=== PATIENT | female | born 1985 | race Caucasian/White ===

== ENCOUNTER 2018-02-25 13:32 | Emergency (ER) | payer BC, OTHER, SELFPAY ==
[2018-02-25] MEDS ORDERED: NA CHLORIDE 0.9% 1,000 ML ONE (14:30)
[2018-02-25 14:45] LABS: Absolute Lymphocytes (CBC) 1.7 K/uL (0.7-4.9); Absolute Monocytes 0.6 K/uL (0.1-1.3); Absolute Neutrophil 3.5 K/uL (1.8-8.0); Eosinophils % 2.8 % (0-4.4); Hematocrit 38.7 % (36.0-45.0); Lymphocytes % 28.1 % (15.3-44.8); MCH 30.6 pg (27.0-35.0); MCV 89.8 fL (80-100); MPV 9.2 fL (7.6-11.3); Monocytes % 9.5 % (3.3-12.3); RBC Red Blood Cell Count 4.32 M/uL (3.86-4.86)
[2018-02-25 15:01] LABS: ALT/SGPT 19 U/L (12-78); AST/SGOT 17 U/L (15-37); Albumin 4.3 g/dL (3.4-5.0); Alkaline Phosphatase 57 U/L (45-117); BUN Blood Urea Nitrogen 8 mg/dL (7-18); Bicarbonate 28 mmol/L (21-32); Bilirubin Total 0.5 mg/dL (0.2-1.0); Glucose Level 93 mg/dL (74-106); Potassium 3.7 mmol/L (3.5-5.1); Protein, Total 8.1 g/dL (6.4-8.2); Sodium Level 140 mmol/L (136-145)
[2018-02-25 16:05] LABS: Urine Blood 3+ (NEG); Urine Glucose NEGATIVE (NEG); Urine Protein NEGATIVE (NEG); Urine Specific Gravity 1.015 (1.005-1.030)
[2018-02-25] MEDS ORDERED: HYDROCODONE/APAP 7.5/325 MG TAB ONE (16:08)
[2018-02-25 16:25] LABS: Urine Specific Gravity 1.015 (1.005-1.030)
--- NOTE | 2018-02-25 16:55 | RAD REPORT ---
EXAM DESCRIPTION: US - Transvaginal Study Probe - 02/25/2018 4:34 pm CLINICAL HISTORY: Recent , elevated temperature COMPARISON: None. TECHNIQUE: Endovaginal sonography was performed. FINDINGS: Endometrial stripe is 19 mm in maximum thickness. Material in the endometrial cavity is he terogeneous. Doppler evaluation shows no identifiable blood flow or feeding vessel. Normal blood flow within the myometrium. Uterus is 7.3 x 4.7 x 5.6 cm. No blood or fluid in the cul-de-sac. Right ovary is 4.9 x 1.4 x 1.6 cm. Left ovary is 3.7 x 1.7 x 1.7 cm. Doppler evaluation shows normal blood flow within the ovarian stroma. No ovarian or adnexal abnormality. IMPRESSION: Heterogeneous 19 millimeter endometrial stripe. Retained products of conception cannot b e excluded at this thickness even when avascular on Doppler assessment.
--- NOTE | 2018-02-25 17:30 | EDPHYS ---
Physician Documentation [facility] Name: Bere Centeno Age: 32 yrs Sex: Female : 1985 Arrival Date: 02/25/2018 Time: 13:36 Bed 25 Private MD: None, None ED Physician Darren Aranda HPI: 02/25 13:57 This 32 yrs old Female presents to ER via Ambulatory with complaints of kav Vaginal Bleeding, Abdominal Cramping. 15:49 The patient presents with vaginal bleeding that is heavy. Onset: The symptoms/episode kav began/occurred acutely, 2 day(s) ago. Modifying factors: The symptoms are alleviated by nothing, the symptoms are aggravated by nothing. Associated signs and symptoms: Pertinent positives: nausea, vaginal bleeding, Pertinent negatives: cramping, dysuria. Severity of symptoms: At their worst the symptoms were mild, just prior to arrival, in the emergency department the symptoms have improved, mildly. The patient is sexually active, reportedly has a single partner, does not use protection during intercourse. 15:53 The patient's method of control includes nothing. The patient has not experienced kav similar symptoms in the past. The patient has been recently seen by a physician: for an approximately 3 weeks ago and started bleeding 2 days ago. 3 weeks ago. 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 - Social history:: Smoking status: Patient/guardian denies using tobacco. - Ebola Screening: : No symptoms or risks identified at this time. - Family history:: not pertinent. - Hospitalizations: : No recent hospitalization is reported. ROS: 16:11 Constitutional: Negative for fever, chills, and weight loss, Eyes: Negative for injury, kav pain, redness, and discharge, ENT: Negative for injury, pain, and discharge, Neck: Negative for injury, pain, and swelling, Cardiovascular: Negative for chest pain, palpitations, and edema, Respiratory: Negative for shortness of breath, cough, wheezing, and pleuritic chest pain, Abdomen/GI: Negative for abdominal pain, nausea, vomiting, diarrhea, and constipation, Back: Negative for injury and pain, : Negative for injury, bleeding, discharge, and swelling, MS/Extremity: Negative for injury and deformity, Skin: Negative for injury, rash, and discoloration, Neuro: Negative for headache, weakness, numbness, tingling, and seizure, Psych: Negative for depression, anxiety, suicide ideation, homicidal ideation, and hallucinations, Allergy/Immunology: Negative for hives, rash, and allergies, Endocrine: Negative for neck swelling, polydipsia, polyuria, polyphagia, and marked weight changes, Hematologic/Lymphatic: Negative for swollen nodes, abnormal bleeding, and unusual bruising. 17:06 : Positive for pelvic pain, vaginal bleeding. kav Exam: 17:06 Constitutional: This is a well developed, well nourished patient who is awake, alert, kav and in no acute distress. Head/Face: Normocephalic, atraumatic. Eyes: Pupils equal round and reactive to light, extra-ocular motions intact. Lids and lashes normal. Conjunctiva and sclera are non-icteric and not injected. Cornea within normal limits. Periorbital areas with no swelling, redness, or edema. ENT: Nares patent. No nasal discharge, no septal abnormalities noted. Tympanic membranes are normal and external auditory canals are clear. Oropharynx with no redness, swelling, or masses, exudates, or evidence of obstruction, uvula midline. Mucous membranes moist. Neck: Trachea midline, no thyromegaly or masses palpated, and no cervical lymphadenopathy. Supple, full range of motion without nuchal rigidity, or vertebral point tenderness. No Meningismus. Chest/axilla: Normal chest wall appearance and motion. Nontender with no deformity. No lesions are appreciated. Cardiovascular: Regular rate and rhythm with a normal S1 and S2. No gallops, murmurs, or rubs. Normal PMI, no JVD. No pulse deficits. Respiratory: Lungs have equal breath sounds bilaterally, clear to auscultation and percussion. No rales, rhonchi or wheezes noted. No increased work of breathing, no retractions or nasal flaring. Abdomen/GI: Soft, non-tender, with normal bowel sounds. No distension or tympany. No guarding or rebound. No evidence of tenderness throughout. Back: No spinal tenderness. No costovertebral tenderness. Full range of motion. Skin: Warm, dry with normal turgor. Normal color with no rashes, no lesions, and no evidence of cellulitis. MS/ Extremity: Pulses equal, no cyanosis. Neurovascular intact. Full, normal range of motion. Neuro: Awake and alert, GCS 15, oriented to person, place, time, and situation. Cranial nerves II-XII grossly intact. Motor strength 5/5 in all extremities. Sensory grossly intact. Cerebellar exam normal. Normal gait. Psych: Awake, alert, with orientation to person, place and time. Behavior, mood, and affect are within normal limits. 17:06 : Pelvic Exam: External exam: is normal, Sexual behavior: the patient is sexually active, and reports a single partner. Vital Signs: 13:45 BP 121 / 80; Pulse 89; Resp 16; Temp 99.3(TE); Pulse Ox 100% ; Weight 52.16 kg; Height sv 5 ft. 3 in. (160.02 cm); 14:31 BP 124 / 82; Pulse 70; Resp 16; Pulse Ox 100% ; tl3 16:01 BP 114 / 73 RA Supine (auto/reg); Pulse 73 MON; Pulse Ox 99% on R/A; jp3 16:07 BP 114 / 73; Pulse 75; Resp 18; Pulse Ox 100% ; tl3 18:12 BP 114 / 81; Pulse 72; Resp 16; Pulse Ox 100% ; tl3 13:45 Body Mass Index 20.37 (52.16 kg, 160.02 cm) sv MDM: 13:57 Medical screening is not applicable. [facility] 15:25 Data reviewed: vital signs, nurses notes. ED course: awaiting urine results. patient lonnie has not yet voided. 17:06 Physician consultation: Marcelina Ybarra MD was called at 17:07, regarding patient's carlosv condition. 02/25 13:59 Order name: CBC with Diff; Complete Time: 15:02 [facility] 02/25 13:59 Order name: CMP; Complete Time: 15:02 [facility] 02/25 15:50 Order name: Urine Dipstick--Ancillary (enter results); Complete Time: 17: 02/25 16:10 Order name: HCG-Quantitative; Complete Time: 17:14 [facility] 02/25 13:59 Order name: Urine Dipstick-Ancillary (obtain specimen); Complete Time: 16:01 [facility] 02/25 13:59 Order name: Urine Test (obtain specimen); Complete Time: 16:01 [facility] 02/25 16:12 Order name: Urine --Ancillary (enter results); Complete Time: 17:01 02/25 16:13 Order name: US Transvaginal Study (Probe); Complete Time: 17:01 [facility] 02/25 17:21 Order name: VS Recheck; Complete Time: 18:12 kav Administered Medications: 14:30 Drug: NS 0.9% 1000 ml Route: IV; Rate: 1 bolus; Site: left antecubital; Delivery: tl3 Primary tubing; 16:01 Follow up: IV Status: Completed infusion; IV Intake: 1000ml tl3 16:06 Drug: [place] (7.5 mg-325 mg) 1 tabs Route: PO; tl3 18:13 Follow up: Response: No adverse reaction; Pain is decreased tl3 18:26 Drug: DepoProvera - medroxyPROGESTERone 150 mg Route: IM; Site: right deltoid; tl3 18:26 Follow up: Response: No adverse reaction; Medication administered at discharge. tl3 Disposition: 18:37 Co-signature as Attending Physician, Darren Aranda MD. rn Disposition: 02/25/18 17:29 Discharged to Home. Impression: Abnormal uterine and vaginal bleeding, unspecified. - Condition is Stable. - Discharge Instructions: Abnormal Uterine Bleeding. - Prescriptions for Tramadol 50 mg Oral Tablet - take 1 tablet by ORAL route every 8 hours as needed; 20 tablet. - Medication Reconciliation Form, Thank You Letter, Prescription Opioid Use form. - Follow up: Mini Rekhi; When: 5 - 6 days; Reason: If symptoms return, Recheck today's complaints, Continuance of care, Re-evaluation by your physician. - Problem is new. - Notes: f/u with OBGYN in 5-7 days if symptoms persist Signatures: Dispatcher [employer] Gina Bravo RN RN sv Vern, Katherine, RELATIONS SPECIALIST RELATIONS SPECIALIST kav Aranda, Darren, MD MD rn [place], Ninfa, RN RN tl3 Corrections: (The following items were deleted from the chart) 16:12 15:51 URINE --ANCILLARY+UC.LAB.BRZ ordered. EDGA EDMS 16:12 16:08 URINE --ANCILLARY+UC.LAB.BRZ reviewed. lonnie [facility] 18:28 17:29 02/25/2018 17:29 Discharged to Home. Impression: Abnormal uterine and vaginal tl3 bleeding, unspecified. Condition is Stable. Discharge Instructions: Abnormal Uterine Bleeding. Forms are Medication Reconciliation Form, Thank You Letter, Antibiotic Education, Prescription Opioid Use. Follow up: Mini Rekhi; When: 5 - 6 days; Reason: If symptoms return, Recheck today's complaints, Continuance of care, Re-evaluation by your physician. Problem is new. lonnie
--- NOTE | 2018-02-25 17:30 | ER ---
Nurse's Notes [facility] Name: Bere Centeno Age: 32 yrs Sex: Female : 1985 Arrival Date: 02/25/2018 Time: 13:36 Bed 25 Private MD: None, None Diagnosis: Abnormal uterine and vaginal bleeding, unspecified Presentation: 02/25 13:43 Presenting complaint: Patient states: vaginal bleeding that started a couple of hours sv ago. Pt reports going through 3 super pad and 2 tampons within the last hour. Pt reports she had an 3 weeks ago. c/o abd cramping and dizziness. Transition of care: patient was not received from another setting of care. Onset of symptoms was February 25, 2018. Care prior to arrival: None. 13:43 Method Of Arrival: Ambulatory sv 13:43 Acuity: REINIER 3 sv 14:30 Risk Assessment: Do you want to hurt yourself or someone else? Patient reports no tl3 desire to harm self or others. Initial Sepsis Screen: Does the patient meet any 2 criteria? No. Patient's initial sepsis screen is negative. Does the patient have a suspected source of infection? No. Patient's initial sepsis screen is negative. 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 - Social history:: Smoking status: Patient/guardian denies using tobacco. - Ebola Screening: : No symptoms or risks identified at this time. - Family history:: not pertinent. - Hospitalizations: : No recent hospitalization is reported. Screenin:31 Abuse screen: Denies threats or abuse. Nutritional screening: No deficits noted. tl3 Tuberculosis screening: No symptoms or risk factors identified. Fall Risk None identified. Assessment: 14:31 General: Appears in no apparent distress. comfortable, slender, well groomed, well tl3 developed, well nourished, Behavior is calm, cooperative, appropriate for age. Pain: Complains of pain in abdomen. Neuro: Level of Consciousness is awake, alert, obeys commands, Oriented to person, place, time, situation, Appropriate for age. Cardiovascular: Patient's skin is warm and dry. Respiratory: Airway is patent Respiratory effort is even, unlabored, Respiratory pattern is regular, symmetrical. GI: No signs and/or symptoms were reported involving the gastrointestinal system. : Reports cramping, vaginal bleeding that is bright red, heavy flow since this am. EENT: No signs and/or symptoms were reported regarding the EENT system. Derm: No signs and/or symptoms reported regarding the dermatologic system. Musculoskeletal: No signs and/or symptoms reported regarding the musculoskeletal system. 15:45 Reassessment: Patient appears in no apparent distress at this time. No changes from tl3 previously documented assessment. Patient and/or family updated on plan of care and expected duration. Pain level reassessed. Patient is alert, oriented x 3, equal unlabored respirations, skin warm/dry/pink. 17:17 Reassessment: Patient appears in no apparent distress at this time. No changes from tl3 previously documented assessment. Patient and/or family updated on plan of care and expected duration. Pain level reassessed. Patient is alert, oriented x 3, equal unlabored respirations, skin warm/dry/pink. K Gen at bedside discussing POC. 18:12 Reassessment: Patient appears in no apparent distress at this time. No changes from tl3 previously documented assessment. Patient and/or family updated on plan of care and expected duration. Pain level reassessed. Patient is alert, oriented x 3, equal unlabored respirations, skin warm/dry/pink. Vital Signs: 13:45 BP 121 / 80; Pulse 89; Resp 16; Temp 99.3(TE); Pulse Ox 100% ; Weight 52.16 kg; Height sv 5 ft. 3 in. (160.02 cm); 14:31 BP 124 / 82; Pulse 70; Resp 16; Pulse Ox 100% ; tl3 16:01 BP 114 / 73 RA Supine (auto/reg); Pulse 73 MON; Pulse Ox 99% on R/A; jp3 16:07 BP 114 / 73; Pulse 75; Resp 18; Pulse Ox 100% ; tl3 18:12 BP 114 / 81; Pulse 72; Resp 16; Pulse Ox 100% ; tl3 13:45 Body Mass Index 20.37 (52.16 kg, 160.02 cm) sv ED Course: 13:36 Patient arrived in ED. mr 13:36 None, None is Private Physician. mr 13:44 Triage completed. sv 13:46 Arm band placed on right wrist. sv 13:57 Ninfa Reynaga, RN is Primary Nurse. tl3 13:57 Kathi Blevins FNP [facility]. kav 13:57 Darren Aranda MD is Attending Physician. kav 14:20 Inserted saline lock: 22 gauge in left antecubital area, using aseptic technique. Blood jp3 collected. Missed attempt(s): 22 gauge in left forearm. 14:25 Initial lab(s) drawn, by me, sent to lab. jp3 14:31 Patient has correct armband on for positive identification. Placed in gown. Bed in low tl3 position. Call light in reach. Side rails up X 1. 14:31 No provider procedures requiring assistance completed. tl3 14:35 Pillow given. jp3 16:34 US Transvaginal Study (Probe) In Process Unspecified. EDMS 16:50 Diet: Patient given ice chips. Patient given water. jp3 17:29 Marcelina Ybarra MD is Referral Physician. kav 18:12 IV discontinued, intact, bleeding controlled, No redness/swelling at site. Pressure tl3 dressing applied. Administered Medications: 14:30 Drug: NS 0.9% 1000 ml Route: IV; Rate: 1 bolus; Site: left antecubital; Delivery: tl3 Primary tubing; 16:01 Follow up: IV Status: Completed infusion; IV Intake: 1000ml tl3 16:06 Drug: [place] (7.5 mg-325 mg) 1 tabs Route: PO; tl3 18:13 Follow up: Response: No adverse reaction; Pain is decreased tl3 18:26 Drug: DepoProvera - medroxyPROGESTERone 150 mg Route: IM; Site: right deltoid; tl3 18:26 Follow up: Response: No adverse reaction; Medication administered at discharge. tl3 Intake: 16:01 IV: 1000ml; Total: 1000ml. tl3 Outcome: 17:29 Discharge ordered by . kav 18:27 Discharged to home ambulatory. tl3 18:27 Condition: good 18:27 Discharge instructions given to patient, Instructed on discharge instructions, follow up and referral plans. medication usage, Demonstrated understanding of instructions, follow-up care, medications, Prescriptions given X 1. 18:28 Patient left the ED. tl3 Signatures: Dispatcher [employer] Gina Bravo, YUNI RN Kathi Serrato, PUMPER HEAD PUMPER HEAD Amanda Walters mr ReynagaNinfa, YUNI RN tl3 Bib Vyas jp3 Corrections: (The following items were deleted from the chart) 13:46 13:45 Pulse 89bpm; Resp 16bpm; Pulse Ox 97%; Temp 99.3F Temporal; 52.16 kg; Height 5 sv ft. 3 in.; BMI: 20.3; sv
[2018-02-25] MEDS ORDERED: MEDROXYPROGEST ACET 150 MG/ML IM ONE (19:00)
== END 2018-02-25 18:28 | disposition home or self-care (01) ==
LOC: ER 13:32
DX: N93.9 Abnormal uterine and vaginal bleeding, unspecified (principal)
CPT/HCPCS: 36415; 76830; 80053; 81003; 81025; 84702; 85025; 96360; 96361; 96372; 99284; J1050; J7030

== ENCOUNTER 2018-12-02 12:48 | Emergency (ER) | payer OTHER ==
--- OUTSIDE RECORDS SUMMARY | 2018-12-02 12:50 | XMS REPORT ---
:1985 [facility] Address [address] [place] [address] Dr. Joe [address] [place] [id number] Care Team Providers Name Role Phone Unavailable Unavailable Unavailable Problems This patient has no known problems. Allergies, Adverse Reactions, Alerts This patient has no known allergies or adverse reactions. Medications This patient has no known medications.
[2018-12-02 14:00] LABS: Urine Blood 2+ (NEG); Urine Glucose NEGATIVE (NEG); Urine Protein NEGATIVE (NEG); Urine Specific Gravity 1.015 (1.005-1.030); Urine pH 7.5 (5.0-7.0)
[2018-12-02 14:10] LABS: Absolute Monocytes 0.6 K/uL (0.1-1.3); Absolute Neutrophil 6.6 K/uL (1.8-8.0); Basophils % 0.4 % (0-1.3); Eosinophils % 1.7 % (0-4.4); MPV 9.2 fL (7.6-11.3); Monocytes % 6.4 % (3.3-12.3); RBC Red Blood Cell Count 4.11 M/uL (3.86-4.86)
[2018-12-02 14:45] LABS: BUN Blood Urea Nitrogen 6 mg/dL (7-18); Bicarbonate 26 mmol/L (21-32); Glucose Level 82 mg/dL (74-106); HCG, Quantitative 17934 mIU/mL (1-3); Potassium 3.5 mmol/L (3.5-5.1); Sodium Level 141 mmol/L (136-145)
--- NOTE | 2018-12-02 15:03 | RAD REPORT ---
EXAM DESCRIPTION: US - Transvaginal OB - 12/02/2018 2:48 pm CLINICAL HISTORY: Early , vaginal bleeding, pain and cramping COMPARISON: None. FINDINGS: Both ovaries are identifiable and show no suspicious findings. No adnexal mass. No blood o r fluid in the cul-de-sac or adnexa. A normal shaped gestational sac is identified. Yolk sac is seen. There is a second cystic structure p resent. There are no poles identifiable. Gestational sac measurements correspond to a 5 week 6 day age. No hematoma or mass in the endometrial cavity. No significant myometrial finding. IMPRESSION: A 5 week 6 day sized gestational sac is seen in the fundal portion of the endometrial ca vity. However, no pole is currently identifiable. No hematoma or mass within the endometrial cavity. No ovarian or adnexal abnormality. No blood or fluid in the cul de sac. Follow-up sonography can be performed if serial HCG values indicate ongoing .
--- NOTE | 2018-12-02 15:08 | ER ---
Nurse's Notes [facility] Name: Bere Centeno Age: 33 yrs Sex: Female : 1985 Arrival Date: 12/02/2018 Time: 12:51 Bed 20 Private MD: Diagnosis: Threatened Presentation: 12/02 12:55 Presenting complaint: Patient states: "I was seen in [place] ER on Friday with a aa5 threatened miscarriage and they didn't find a heart beat and the baby was measuring 6 weeks but my doctor won't see me because I lost my insurance card so they told me to come to the ER". pt reports vaginal bleeding with small clots. Transition of care: patient was not received from another setting of care. Onset of symptoms was November 2018. Risk Assessment: Do you want to hurt yourself or someone else? Patient reports no desire to harm self or others. Initial Sepsis Screen: Does the patient meet any 2 criteria? No. Patient's initial sepsis screen is negative. Does the patient have a suspected source of infection? No. Patient's initial sepsis screen is negative. Care prior to arrival: None. 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 - Social history:: Smoking status: Patient/guardian denies using tobacco. - Ebola Screening: : No symptoms or risks identified at this time. Screenin:24 Abuse screen: Denies threats or abuse. Nutritional screening: No deficits noted. tw2 Tuberculosis screening: No symptoms or risk factors identified. Fall Risk None identified. Assessment: 13:45 General: Appears in no apparent distress. slender, Behavior is calm, cooperative, tw2 appropriate for age. Pain: Complains of pain in pelvis. Neuro: Level of Consciousness is awake, alert, obeys commands, Oriented to person, place, time, situation. Cardiovascular: Heart tones S1 S2 Capillary refill < 3 seconds Patient's skin is warm and dry. Respiratory: Airway is patent Respiratory effort is even, unlabored, Respiratory pattern is regular, symmetrical, Breath sounds are clear bilaterally. GI: Abdomen is flat, Bowel sounds present X 4 quads. : Reports vaginal bleeding that is bright red, light flow, since "Friday and has gotten heavier since then". : Urine is clear. EENT: No signs and/or symptoms were reported regarding the EENT system. Derm: No signs and/or symptoms reported regarding the dermatologic system. Musculoskeletal: Range of motion: intact in all extremities. 14:13 Reassessment: Patient appears in no apparent distress at this time. No changes from tw2 previously documented assessment. Patient and/or family updated on plan of care and expected duration. Pain level reassessed. Patient is alert, oriented x 3, equal unlabored respirations, skin warm/dry/pink. 15:35 Reassessment: Patient appears in no apparent distress at this time. No changes from tw2 previously documented assessment. Patient and/or family updated on plan of care and expected duration. Pain level reassessed. Patient is alert, oriented x 3, equal unlabored respirations, skin warm/dry/pink. Vital Signs: 12:57 BP 120 / 77; Pulse 80; Resp 16 S; Temp 99.4(TE); Pulse Ox 100% on R/A; Weight 54.43 kg aa5 (R); Height 5 ft. 3 in. (160.02 cm) (R); Pain 8/10; 14:13 BP 110 / 64; Pulse 72; Resp 17; Pulse Ox 99% on R/A; tw2 15:01 BP 110 / 81; Pulse 80; Resp 17; Temp 98.7(O); Pulse Ox 100% on R/A; mh5 12:57 Body Mass Index 21.26 (54.43 kg, 160.02 cm) aa5 ED Course: 12:51 Patient arrived in ED. mr 12:55 Arm band placed on. aa5 12:57 Triage completed. aa5 13:15 Bed in low position. Call light in reach. Pulse ox on. NIBP on. tw2 13:23 Mary Cole RN is Primary Nurse. tw2 13:29 Casie Tilley FNP-C is PHCP. snw 13:29 Alzahri, Mohammad, MD is Attending Physician. snw 14:03 Initial lab(s) drawn, by me, sent to lab. Inserted saline lock: 22 gauge in left lt1 antecubital area, using aseptic technique. Missed attempt(s): 20 gauge in right antecubital area. 14:43 US Transvaginal Ob In Process Unspecified. EDMS 15:25 Awaiting: results from provider at this time prior to dsicharge. tw2 15:34 No provider procedures requiring assistance completed. IV discontinued, intact, tw2 bleeding controlled, No redness/swelling at site. Pressure dressing applied. Administered Medications: No medications were administered Outcome: 15:08 Discharge ordered by . snw 15:34 Discharged to home ambulatory. tw2 15:34 Condition: stable 15:34 Discharge instructions given to patient, Instructed on discharge instructions, follow up and referral plans. Demonstrated understanding of instructions, follow-up care. 15:35 Patient left the ED. tw2 Signatures: Dispatcher [employer] EDID Casie Tilley, MID LEVEL DEVELOPER-C MID LEVEL DEVELOPER-Csnw Margi John mr [place], Ros, RN RN aa5 Mary Cole RN RN tw2 Amanda White [facility] Rad[facility]
--- NOTE | 2018-12-02 15:08 | EDPHYS ---
Physician Documentation [facility] Name: Bere Centeno Age: 33 yrs Sex: Female : 1985 Arrival Date: 12/02/2018 Time: 12:51 Bed 20 Private MD: ED Physician Hadley Humphrey HPI: 12/02 14:45 This 33 yrs old Female presents to ER via Ambulatory with complaints of 9 wks snw , Vaginal Bleeding. 14:45 The patient presents with vaginal bleeding that is moderate. Onset: The snw symptoms/episode began/occurred suddenly, 3 day(s) ago, and became worse and became persistent. Associated signs and symptoms: Pertinent positives: cramping. Severity of symptoms: At their worst the symptoms were mild, moderate. The patient has experienced a previous episode. The patient has been recently seen by a physician: [facility] Friday. OFFICE RECEPTIONIST: 12:57 LMP 09/29/2018 aa5 14:45 4, Full Term 3 snw Historical: - Allergies: 12:57 No Known Allergies; aa5 - Home Meds: 12:57 None [Active]; aa5 - PMHx: 12:57 None; aa5 - PSHx: 12:57 None; aa5 - Immunization history:: Flu vaccine is not up to date. - Social history:: Smoking status: Patient/guardian denies using tobacco. - Ebola Screening: : No symptoms or risks identified at this time. ROS: 14:44 Constitutional: Negative for fever, chills, and weight loss, Eyes: Negative for injury, snw pain, redness, and discharge, ENT: Negative for injury, pain, and discharge, Neck: Negative for injury, pain, and swelling, Cardiovascular: Negative for chest pain, palpitations, and edema, Respiratory: Negative for shortness of breath, cough, wheezing, and pleuritic chest pain, Abdomen/GI: Negative for abdominal pain, nausea, vomiting, diarrhea, and constipation, Back: Negative for injury and pain, MS/Extremity: Negative for injury and deformity, Skin: Negative for injury, rash, and discoloration, Neuro: Negative for headache, weakness, numbness, tingling, and seizure. 14:44 : Positive for vaginal bleeding, US at [facility] Mon, 6week IUP, no heartbeat noted. Pt 9 wks by dates. Se[address] Dr. Melendrez. Exam: 14:43 Constitutional: This is a well developed, well nourished patient who is awake, alert, snw and in no acute distress. Head/Face: Normocephalic, atraumatic. Eyes: Pupils equal round and reactive to light, extra-ocular motions intact. Lids and lashes normal. Conjunctiva and sclera are non-icteric and not injected. Cornea within normal limits. Periorbital areas with no swelling, redness, or edema. ENT: Nares patent. No nasal discharge, no septal abnormalities noted. Tympanic membranes are normal and external auditory canals are clear. Oropharynx with no redness, swelling, or masses, exudates, or evidence of obstruction, uvula midline. Mucous membranes moist. Neck: Trachea midline, no thyromegaly or masses palpated, and no cervical lymphadenopathy. Supple, full range of motion without nuchal rigidity, or vertebral point tenderness. No Meningismus. Chest/axilla: Normal chest wall appearance and motion. Nontender with no deformity. No lesions are appreciated. Cardiovascular: Regular rate and rhythm with a normal S1 and S2. No gallops, murmurs, or rubs. Normal PMI, no JVD. No pulse deficits. Respiratory: Lungs have equal breath sounds bilaterally, clear to auscultation and percussion. No rales, rhonchi or wheezes noted. No increased work of breathing, no retractions or nasal flaring. Back: No spinal tenderness. No costovertebral tenderness. Full range of motion. Skin: Warm, dry with normal turgor. Normal color with no rashes, no lesions, and no evidence of cellulitis. MS/ Extremity: Pulses equal, no cyanosis. Neurovascular intact. Full, normal range of motion. Neuro: Awake and alert, GCS 15, oriented to person, place, time, and situation. Cranial nerves II-XII grossly intact. Motor strength 5/5 in all extremities. Sensory grossly intact. Cerebellar exam normal. Normal gait. Psych: Awake, alert, with orientation to person, place and time. Behavior, mood, and affect are within normal limits. 14:43 Abdomen/GI: Inspection: abdomen appears normal, Bowel sounds: normal, Palpation: mild abdominal tenderness, in the suprapubic area. Vital Signs: 12:57 BP 120 / 77; Pulse 80; Resp 16 S; Temp 99.4(TE); Pulse Ox 100% on R/A; Weight 54.43 kg aa5 (R); Height 5 ft. 3 in. (160.02 cm) (R); Pain 8/10; 14:13 BP 110 / 64; Pulse 72; Resp 17; Pulse Ox 99% on R/A; tw2 15:01 BP 110 / 81; Pulse 80; Resp 17; Temp 98.7(O); Pulse Ox 100% on R/A; mh5 12:57 Body Mass Index 21.26 (54.43 kg, 160.02 cm) aa5 MDM: 13:29 Patient medically screened. snw 15:08 Data reviewed: vital signs, nurses notes. Data interpreted: Pulse oximetry: on room air snw is 100 %. Interpretation: normal. Counseling: I had a detailed discussion with the patient and/or guardian regarding: the historical points, exam findings, and any diagnostic results supporting the discharge/admit diagnosis, the presence of at least one elevated blood pressure reading (>120/80) during this emergency department visit, lab results, radiology results, the need for outpatient follow up, to return to the emergency department if symptoms worsen or persist or if there are any questions or concerns that arise at home. Special discussion: Based on the patient's Hx, exam, and Dx evaluation, there is no indication for emergent surgery or inpatient Tx. It is understood by the patient/guardian that if the Sx's persist or worsen they need to return immediately for re-evaluation. Based on the history and exam findings, there is no indication for further emergent testing or inpatient evaluation. I discussed with the patient/guardian the need to see the OB Gyne specialist for further evaluation of the symptoms. 12/02 13:28 Order name: Urine Dipstick--Ancillary (enter results); Complete Time: 14:02 bd 12/02 13:28 Order name: Urine --Ancillary (enter results); Complete Time: 14:02 bd 12/02 13:39 Order name: Quantitative Hcg; Complete Time: 14:46 snw 12/02 13:39 Order name: Abo/rh Typing; Complete Time: 15:22 snw 12/02 13:39 Order name: Basic Metabolic Panel; Complete Time: 14:46 snw 12/02 13:39 Order name: CBC with Diff; Complete Time: 14:14 snw 12/02 13:39 Order name: IV Saline Lock; Complete Time: 14:04 snw 12/02 13:39 Order name: Labs collected and sent; Complete Time: 14:04 snw 12/02 13:39 Order name: NPO; Complete Time: 13:43 snw 12/02 13:39 Order name: US Transvaginal Ob; Complete Time: 15:05 snw Administered Medications: No medications were administered Disposition: 16:44 Co-signature as Attending Physician, Hadley Humphrey MD. ma2 Disposition: 12/02/18 15:08 Discharged to Home. Impression: Threatened . - Condition is Stable. - Discharge Instructions: Threatened Miscarriage, Pelvic Rest. - Prescriptions for Tylenol- Codeine #3 300-30 mg Oral Tablet - take 2 tablets by ORAL route every 6 hours As needed; 14 tablet. - Medication Reconciliation Form, Thank You Letter, Antibiotic Education, Prescription Opioid Use, Work release form form. - Follow up: Private Physician; When: 1 - 2 days; Reason: Recheck today's complaints, Continuance of care, Re-evaluation by your physician. Follow up: Emergency Department; When: As needed; Reason: Worsening of condition. Signatures: Dispatcher [employer] EDMS ClarisaadelaEllen Shelly, SOCK KNITTING MACHINE OPERATOR-C SOCK KNITTING MACHINE OPERATOR-Csnw Ros Murrieta, RN RN aa5 Mary Cole RN RN tw2 Hadley Humphrey MD MD ar2 Corrections: (The following items were deleted from the chart) 15:16 15:08 Labs - recollect needed ordered. bd tw2 15:35 15:08 12/02/2018 15:08 Discharged to Home. Impression: Threatened . Condition tw2 is Stable. Forms are Medication Reconciliation Form, Thank You Letter, Antibiotic Education, Prescription Opioid Use. Follow up: Private Physician; When: 1 - 2 days; Reason: Recheck today's complaints, Continuance of care, Re-evaluation by your physician. Follow up: Emergency Department; When: As needed; Reason: Worsening of condition. snw
== END 2018-12-02 15:35 | disposition home or self-care (01) ==
LOC: ER 12:48
DX: O20.0 Threatened abortion (principal)
CPT/HCPCS: 36415; 76817; 80048; 81003; 81025; 84702; 85025; 86900; 86901

== ENCOUNTER 2019-06-24 07:43 | Emergency (ER) | payer OTHER, SELFPAY ==
--- OUTSIDE RECORDS SUMMARY | 2019-06-24 07:45 | XMS REPORT ---
:1985 [facility] Address [facility] [address] [place] [id number] Care Team Providers Name Role Phone Unavailable Unavailable Unavailable Problems This patient has no known problems. Allergies, Adverse Reactions, Alerts This patient has no known allergies or adverse reactions. Medications This patient has no known medications.
[2019-06-24] MEDS ORDERED: NA CHLORIDE 0.9% 1,000 ML ONE (08:26)
[2019-06-24 08:51] LABS: Absolute Lymphocytes (CBC) 1.1 K/uL (0.7-4.9); Basophils % 0.4 % (0-1.3); Hematocrit 40.4 % (36.0-45.0); Lymphocytes % 7.7 % (15.3-44.8); MPV 9.3 fL (7.6-11.3); RBC Red Blood Cell Count 4.55 M/uL (3.86-4.86)
[2019-06-24 09:10] LABS: ALT/SGPT 20 U/L (12-78); AST/SGOT 11 U/L (15-37); Albumin 4.3 g/dL (3.4-5.0); Alkaline Phosphatase 58 U/L (45-117); BUN Blood Urea Nitrogen 7 mg/dL (7-18); Bicarbonate 26 mmol/L (21-32); Bilirubin Direct 0.2 mg/dL (0-0.2); Bilirubin Total 0.6 mg/dL (0.2-1.0); Glucose Level 87 mg/dL (74-106); Lipase 82 U/L (73-393); Potassium 3.5 mmol/L (3.5-5.1); Protein, Total 7.9 g/dL (6.4-8.2); Sodium Level 140 mmol/L (136-145)
--- NOTE | 2019-06-24 09:30 | EDPHYS ---
Physician Documentation [facility] Name: Bere De Jesus Age: 33 yrs Sex: Female : 1985 Arrival Date: 06/24/2019 Time: 07:48 Bed 5 Private MD: ED Physician Darren Aranda HPI: 06/24 09:05 This 33 yrs old Female presents to ER via Ambulatory with complaints of Cough.pm1 09:05 The patient or guardian reports cough, with productive sputum, that is green. Onset: pm1 The symptoms/episode began/occurred 3 day(s) ago. Severity of symptoms: in the emergency department the symptoms are actually worse. Modifying factors: The symptoms are alleviated by nothing, the symptoms are aggravated by nothing. Associated signs and symptoms: Pertinent positives: nausea, sore throat, vomiting, Pertinent negatives: chest pain, diarrhea, fever. The patient has not experienced similar symptoms in the past. It is unknown whether or not the patient has recently seen a physician. Presenting to the ER with her son who has a sore throat and cough that started at the same time. INTERACTIVE DEVELOPER: 08:08 LMP N/A - tw2 Historical: - Allergies: 08:03 No Known Allergies; ss - Home Meds: 08:03 None [Active]; ss - PMHx: 08:03 None; ss - PSHx: 08:03 None; ss - Immunization history:: Adult Immunizations up to date. - Social history:: Smoking status: Patient/guardian denies using tobacco. - Ebola Screening: : Patient denies exposure to infectious person Patient denies travel to an Ebola-affected area in the 21 days before illness onset. ROS: 09:05 Constitutional: Negative for fever, chills, and weight loss, Eyes: Negative for injury, pm1 pain, redness, and discharge, Neck: Negative for injury, pain, and swelling. 09:05 Cardiovascular: Negative for chest pain, palpitations, and edema. 09:05 Back: Negative for injury and pain, : Negative for injury, bleeding, discharge, and swelling, MS/Extremity: Negative for injury and deformity, Skin: Negative for injury, rash, and discoloration, Neuro: Negative for headache, weakness, numbness, tingling, and seizure. 09:05 ENT: Positive for sore throat, Negative for drainage from ear(s), ear pain. 09:05 Respiratory: Positive for cough, some tingle of blood present in sputum, Negative for shortness of breath, wheezing. 09:05 Abdomen/GI: Positive for nausea and vomiting, Negative for abdominal pain, diarrhea, constipation. Exam: 09:05 Constitutional: This is a well developed, well nourished patient who is awake, alert, pm1 and in no acute distress. Head/Face: Normocephalic, atraumatic. Eyes: Pupils equal round and reactive to light, extra-ocular motions intact. Lids and lashes normal. Conjunctiva and sclera are non-icteric and not injected. Cornea within normal limits. Periorbital areas with no swelling, redness, or edema. 09:05 Neck: Trachea midline, no thyromegaly or masses palpated, and no cervical lymphadenopathy. Supple, full range of motion without nuchal rigidity, or vertebral point tenderness. No Meningismus. Chest/axilla: Normal chest wall appearance and motion. Nontender with no deformity. No lesions are appreciated. Cardiovascular: Regular rate and rhythm with a normal S1 and S2. No gallops, murmurs, or rubs. Normal PMI, no JVD. No pulse deficits. Respiratory: Lungs have equal breath sounds bilaterally, clear to auscultation and percussion. No rales, rhonchi or wheezes noted. No increased work of breathing, no retractions or nasal flaring. Abdomen/GI: Soft, non-tender, with normal bowel sounds. No distension or tympany. No guarding or rebound. No evidence of tenderness throughout. Back: No spinal tenderness. No costovertebral tenderness. Full range of motion. Skin: Warm, dry with normal turgor. Normal color with no rashes, no lesions, and no evidence of cellulitis. MS/ Extremity: Pulses equal, no cyanosis. Neurovascular intact. Full, normal range of motion. 09:05 ENT: External ear(s): are unremarkable, Ear canal(s): are normal, TM's: are normal, Nose: is normal, Mouth: is normal, Posterior pharynx: Airway: normal, no evidence of obstruction, patent, Tonsils: bilaterally enlarged, with erythema, no exudate, no ulcerations, peritonsillar mass, is not appreciated, pooling of secretions, is not appreciated. 09:05 Neuro: Orientation: is normal, Motor: is normal, moves all fours, Sensation: is normal, no obvious gross deficits. Vital Signs: 08:03 BP 120 / 67; Pulse 112; Resp 16; Temp 98.9(O); Pulse Ox 97% on R/A; Weight 49.9 kg; ss Height 5 ft. 3 in. (160.02 cm); Pain 7/10; 09:41 BP 122 / 66; Pulse 98; Resp 17; Pulse Ox 99% on R/A; tw2 08:03 Body Mass Index 19.49 (49.90 kg, 160.02 cm) ss MDM: 08:11 Patient medically screened. pm1 09:27 Data reviewed: vital signs. Data interpreted: Pulse oximetry: on room air is 97 %. pm1 Interpretation: normal. Counseling: I had a detailed discussion with the patient and/or guardian regarding: the historical points, exam findings, and any diagnostic results supporting the discharge/admit diagnosis, lab results, the need for outpatient follow up, to return to the emergency department if symptoms worsen or persist or if there are any questions or concerns that arise at home. 06/24 08:22 Order name: Flu; Complete Time: 09:23 pm1 06/24 08:22 Order name: Strep; Complete Time: 09:23 pm1 06/24 08:22 Order name: [place] Screen Profile; Complete Time: 09:23 pm1 06/24 08:22 Order name: Basic Metabolic Panel; Complete Time: 09:23 pm1 06/24 08:22 Order name: CBC with Diff pm1 06/24 08:22 Order name: Hepatic Function; Complete Time: 09:23 pm1 06/24 08:22 Order name: Chest Pa And Lat (2 Views) XRAY pm1 06/24 08:22 Order name: Lipase; Complete Time: 09:23 pm1 Administered Medications: 08:36 Drug: NS 0.9% 1000 ml Route: IV; Rate: 1000 ml; Site: right antecubital; tw2 09:30 Follow up: Response: No adverse reaction; IV Status: Completed infusion; IV Intake: tw2 1000ml Disposition: 12:41 Co-signature as Attending Physician, Darren Aranda MD. rn Disposition: 06/24/19 09:29 Discharged to Home. Impression: Streptococcal pharyngitis, Vomiting. - Condition is Stable. - Discharge Instructions: Nausea and Vomiting, Adult, Strep Throat. - Prescriptions for Amoxicillin 500 mg Oral Capsule - take 1 capsule by ORAL route every 8 hours for 10 days; 30 tablet. Zofran 4 mg Oral Tablet - take 1 tablet by ORAL route every 12 hours As needed; 20 tablet. Guaifenesin AC 10- 100 mg/5 mL Oral Liquid - take 10 milliliter by ORAL route every 4 hours As needed; 240 milliliter. - Medication Reconciliation Form, Thank You Letter, Antibiotic Education, Prescription Opioid Use, Work release form form. - Follow up: Emergency Department; When: As needed; Reason: Worsening of condition. Follow up: Private Physician; When: 2 - 3 days; Reason: Recheck today's complaints, Continuance of care, Re-evaluation by your physician. - Problem is new. - Symptoms have improved. Signatures: Dispatcher [employer] EDMS Darren Aranda MD MD rn Smirch, Shelby, RN RN ss Marinas, Patrick, NP ONLINE MERCHANT pm1 Mary Cole RN RN tw2 Corrections: (The following items were deleted from the chart) 09:33 09:29 06/24/2019 09:29 Discharged to Home. Impression: Streptococcal pharyngitis. pm1 Condition is Stable. Forms are Work release form, Medication Reconciliation Form, Thank You Letter, Antibiotic Education, Prescription Opioid Use. Follow up: Emergency Department; When: As needed; Reason: Worsening of condition. Follow up: Private Physician; When: 2 - 3 days; Reason: Recheck today's complaints, Continuance of care, Re-evaluation by your physician. Problem is new. Symptoms have improved. pm1 09:42 09:33 06/24/2019 09:29 Discharged to Home. Impression: Streptococcal pharyngitis; tw2 Vomiting. Condition is Stable. Discharge Instructions: Strep Throat, Nausea and Vomiting, Adult. Prescriptions for Amoxicillin 500 mg Oral Capsule - take 1 capsule by ORAL route every 8 hours for 10 days; 30 tablet, Zofran 4 mg Oral Tablet - take 1 tablet by ORAL route every 12 hours As needed; 20 tablet, Guaifenesin AC 10-100 mg/5 mL Oral Liquid - take 10 milliliter by ORAL route every 4 hours As needed; 240 milliliter. and Forms are Work release form, Medication Reconciliation Form, Thank You Letter, Antibiotic Education, Prescription Opioid Use. Follow up: Emergency Department; When: As needed; Reason: Worsening of condition. Follow up: Private Physician; When: 2 - 3 days; Reason: Recheck today's complaints, Continuance of care, Re-evaluation by your physician. Problem is new. Symptoms have improved. pm1
--- NOTE | 2019-06-24 09:30 | ER ---
Nurse's Notes [facility] Name: Bere De Jseus Age: 33 yrs Sex: Female : 1985 Arrival Date: 06/24/2019 Time: 07:48 Bed 5 Private MD: Diagnosis: Streptococcal pharyngitis;Vomiting Presentation: 06/24 08:02 Presenting complaint: Patient states: cough, sneezing, hoarse voice, vomiting, diarrhea ss and blood tinged sputum that began 2 days ago. Transition of care: patient was not received from another setting of care. Onset of symptoms was June 22, 2019. Risk Assessment: Do you want to hurt yourself or someone else? Patient reports no desire to harm self or others. Initial Sepsis Screen: Does the patient meet any 2 criteria? HR > 90 bpm. Does the patient have a suspected source of infection? No. Patient's initial sepsis screen is negative. Care prior to arrival: None. 08:02 Method Of Arrival: Ambulatory ss 08:02 Acuity: REINIER 3 ss NURSE PRACTICAL: 08:08 LMP N/A - tw2 Historical: - Allergies: 08:03 No Known Allergies; ss - Home Meds: 08:03 None [Active]; ss - PMHx: 08:03 None; ss - PSHx: 08:03 None; ss - Immunization history:: Adult Immunizations up to date. - Social history:: Smoking status: Patient/guardian denies using tobacco. - Ebola Screening: : Patient denies exposure to infectious person Patient denies travel to an Ebola-affected area in the 21 days before illness onset. Screenin:08 Abuse screen: Denies threats or abuse. Nutritional screening: No deficits noted. tw2 Tuberculosis screening: No symptoms or risk factors identified. Fall Risk None identified. Assessment: 08:41 General: Appears in no apparent distress. slender, Behavior is calm, cooperative, tw2 appropriate for age. Pain: Complains of pain in uvula, left aspect of posterior pharynx and right aspect of posterior pharynx. Neuro: Level of Consciousness is awake, alert, obeys commands, Oriented to person, place, time, situation. Cardiovascular: Heart tones S1 S2 Patient's skin is warm and dry. Respiratory: Reports cough that is non-productive, Airway is patent Respiratory effort is even, unlabored, Respiratory pattern is regular, symmetrical, Breath sounds are clear bilaterally. GI: Abdomen is flat, Bowel sounds present X 4 quads. Reports diarrhea. : No signs and/or symptoms were reported regarding the genitourinary system. EENT: Reports nasal congestion nasal discharge. Derm: No signs and/or symptoms reported regarding the dermatologic system. Musculoskeletal: Range of motion: intact in all extremities. 09:41 Reassessment: Patient appears in no apparent distress at this time. No changes from tw2 previously documented assessment. Patient and/or family updated on plan of care and expected duration. Pain level reassessed. Patient is alert, oriented x 3, equal unlabored respirations, skin warm/dry/pink. Vital Signs: 08:03 BP 120 / 67; Pulse 112; Resp 16; Temp 98.9(O); Pulse Ox 97% on R/A; Weight 49.9 kg; ss Height 5 ft. 3 in. (160.02 cm); Pain 7/10; 09:41 BP 122 / 66; Pulse 98; Resp 17; Pulse Ox 99% on R/A; tw2 08:03 Body Mass Index 19.49 (49.90 kg, 160.02 cm) ED Course: 07:48 Patient arrived in ED. ag5 08:03 Triage completed. ss 08:03 Arm band placed on right wrist. ss 08:07 Mary Cole, RN is Primary Nurse. tw2 08:07 Bed in low position. Call light in reach. tw2 08:09 Alan Arriola NP is PHCP. pm1 08:09 Darren Aranda MD is Attending Physician. pm1 08:37 Strep Sent. tw2 08:37 Flu Sent. tw2 09:14 Chest Pa And Lat (2 Views) XRAY In Process Unspecified. EDMS 09:41 No provider procedures requiring assistance completed. IV discontinued, intact, tw2 bleeding controlled, No redness/swelling at site. Pressure dressing applied. Administered Medications: 08:36 Drug: NS 0.9% 1000 ml Route: IV; Rate: 1000 ml; Site: right antecubital; tw2 09:30 Follow up: Response: No adverse reaction; IV Status: Completed infusion; IV Intake: tw2 1000ml Intake: 09:30 IV: 1000ml; Total: 1000ml. tw2 Outcome: 09:29 Discharge ordered by . pm1 09:41 Discharged to home ambulatory, with family. tw2 09:41 Condition: stable 09:41 Discharge instructions given to patient, family, Instructed on discharge instructions, follow up and referral plans. medication usage, Demonstrated understanding of instructions, follow-up care, medications, Prescriptions given X 3. 09:42 Patient left the ED. tw2 Signatures: Dispatcher [employer] EDMS Terri Barnett RN RN ss Alan Arriola NP RODDING MACHINE TENDER pm1 Mary Cole RN RN tw2 Serafin Morrissey ag5
[2019-06-24 09:57] LABS: Blood Morphology Comment NOT SEEN (NOT SEEN); Platelet Estimate ADEQ
[2019-06-24 09:59] VITALS: TEMP 98.9
[2019-06-24 10:01] VITALS: BP 122/66; O2SAT 99
--- NOTE | 2019-06-24 10:57 | RAD REPORT ---
EXAM DESCRIPTION: RAD - Chest Pa And Lat (2 Views) - 06/24/2019 9:09 am CLINICAL HISTORY: COUGH COMPARISON: None. TECHNIQUE: PA and lateral views of the chest were obtained. FINDINGS: The lungs are clear of focal finding. Minimal prominence of the interstitial pattern is be lieved be baseline. Trachea is midline. Heart size is normal and central vasculature is within norm al limits. No pleural effusion or pneumothorax seen. No acute bony finding noted. No aortic abnorm ality. IMPRESSION: No acute cardiopulmonary process.
== END 2019-06-24 09:42 | disposition home or self-care (01) ==
LOC: ER 07:43
DX: J02.0 Streptococcal pharyngitis (principal); R11.2 Nausea with vomiting, unspecified
CPT/HCPCS: 36415; 71046; 80048; 80076; 83690; 85025; 86308; 87081; 87804; 96360; 99284; J7030

== ENCOUNTER 2022-03-01 18:26 | Emergency (ER) | payer SELFPAY ==
[2022-03-01 19:02] LABS: Urine Blood 1+ (Negative); Urine Glucose Negative (Negative); Urine Protein 3+ (Negative); Urine Specific Gravity 1.015 (1.005-1.030); Urine pH >=9.0 (5.0-7.0)
[2022-03-01 20:05] LABS: Urine Specific Gravity/Preg 1.015 (1.005-1.030)
[2022-03-01 20:07] LABS: Urine Bacteria >50 /HPF (<20)
--- NOTE | 2022-03-01 20:10 | ER ---
[facility] Name: Bere De Jesus Age: 36 yrs Sex: Female : 1985 Arrival Date: 03/01/2022 Time: 18:29 Bed 12 Private MD: Diagnosis: UTI/ Urinary tract infection, site not specified Presentation: 03/01 18:48 Chief complaint: Patient states: about a week and half a go I thought I had a UTI and iw now I've been throwing up , it started with burning and pain with urination , tested positive for COVID on . Coronavirus screen: At this time, the client does not indicate any symptoms associated with coronavirus-19. Ebola Screen: Patient negative for fever greater than or equal to 101.5 degrees Fahrenheit, and additional compatible Ebola Virus Disease symptoms Patient denies exposure to infectious person. Patient denies travel to an Ebola-affected area in the 21 days before illness onset. No symptoms or risks identified at this time. Initial Sepsis Screen: Does the patient meet any 2 criteria? No. Patient's initial sepsis screen is negative. Does the patient have a suspected source of infection? No. Patient's initial sepsis screen is negative. Risk Assessment: Do you want to hurt yourself or someone else? Patient reports no desire to harm self or others. Onset of symptoms was February 19, 2022. 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 - Social history:: Smoking status: Patient denies any tobacco usage or history of. Screenin:29 Abuse screen: Denies threats or abuse. Denies injuries from another. Nutritional tw5 screening: No deficits noted. Tuberculosis screening: No symptoms or risk factors identified. Fall Risk None identified. Assessment: 20:29 General: Appears in no apparent distress. Behavior is calm, cooperative, appropriate tw5 for age. Pain: Pain currently is 3 out of 10 on a pain scale. Neuro: No deficits noted. Cardiovascular: No deficits noted. Respiratory: No deficits noted. Vital Signs: 18:48 BP 121 / 93; Pulse 95; Resp 16; Temp 98.7; Pulse Ox 99% on R/A; iw ED Course: 18:29 Patient arrived in ED. rg4 18:41 Alice Ordonez FNP-C is [facility]. kb 18:41 Raghav Emmanuel MD is Attending Physician. kb 18:50 Arm band placed on. iw 18:51 Triage completed. iw 19:05 Urine Microscopic Only Sent. mb7 20:21 Sherly Latif is Primary Nurse. tw5 20:29 Patient has correct armband on for positive identification. tw5 20:29 No provider procedures requiring assistance completed. Patient did not have IV access tw5 during this emergency room visit. Administered Medications: 20:22 Drug: Augmentin (Amoxicillin-Clavulanate) 875 mg Route: PO; tw5 Medication: 20:29 VIS not applicable for this client. tw5 Outcome: 20:10 Discharge ordered by MD. kb 20:29 Discharged to home ambulatory. tw5 20:29 Condition: good 20:29 Discharge instructions given to patient, Instructed on discharge instructions, follow up and referral plans. medication usage, Demonstrated understanding of instructions, follow-up care, medications, Prescriptions given X 1. 20:30 Patient left the ED. tw5 Signatures: Alice Ordonez FNP-C FNP-Shannan Villa, RN RN Stephanie Sifuentes rg4 Sherly Latif tw5 Margi Leyva mb7 Corrections: (The following items were deleted from the chart) 18:51 18:48 Pulse 95bpm; Resp 16bpm; Pulse Ox 99% RA; Temp 98.7F; iw iw
--- NOTE | 2022-03-01 20:10 | EDPHYS ---
Physician Documentation [facility] Name: Bere De Jesus Age: 36 yrs Sex: Female : 1985 Arrival Date: 03/01/2022 Time: 18:29 Bed 12 Private MD: CONNIE Physician Raghav Emmanuel HPI: 03/02 01:30 This 36 yrs old Female presents to ER via Ambulatory with complaints of Low Back Pain. kb 01:30 The patient presents with urinary symptoms, dysuria, frequency. Onset: The kb symptoms/episode began/occurred 1.5 week(s) ago. Modifying factors: The symptoms are alleviated by nothing, the symptoms are aggravated by urinating. Associated signs and symptoms: Pertinent positives: dysuria, nausea, urinary frequency, vomiting. Severity of symptoms: At their worst the symptoms were mild, in the emergency department the symptoms are unchanged. The patient has experienced similar episodes in the past. The patient has not recently seen a physician. ContinuePatient reports HTN, urinary frequency, nausea and vomiting and low back pain.. States symptoms started a week and a half ago and have progressed. Reports frequent UTIs, approximately 2 to 3/year.. 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 - Social history:: Smoking status: Patient denies any tobacco usage or history of. ROS: 03/02 01:29 Constitutional: Negative for fever, chills, and weight loss. kb Abdomen/GI: Positive for nausea and vomiting, Negative for abdominal pain. : Positive for urinary symptoms, flank pain, urinary frequency, burning with urination. All other systems are negative. Exam: :29 Constitutional: This is a well developed, well nourished patient who is awake, alert, kb and in no acute distress. Head/Face: Normocephalic, atraumatic. ENT: Moist Mucous membranes Cardiovascular: Regular rate and rhythm with a normal S1 and S2. No gallops, murmurs, or rubs. No pulse deficits. Respiratory: Respirations even and unlabored. No increased work of breathing. Talking in full sentences Abdomen/GI: Soft, non-tender. No distention Back: No spinal tenderness. No costovertebral tenderness. Full range of motion. Skin: Warm, dry with normal turgor. Normal color. MS/ Extremity: Pulses equal, no cyanosis. Neurovascular intact. Full, normal range of motion. Neuro: Awake and alert, GCS 15, oriented to person, place, time, and situation. Moves all extremities. Normal gait. Psych: Awake, alert, with orientation to person, place and time. Behavior, mood, and affect are within normal limits. Vital Signs: 03/01 18:48 BP 121 / 93; Pulse 95; Resp 16; Temp 98.7; Pulse Ox 99% on R/A; iw MDM: 18:51 Patient medically screened. 03/02 01:29 Data reviewed: vital signs, nurses notes. Data interpreted: Pulse oximetry: on room air kb is 99 %. Interpretation: normal. Counseling: I had a detailed discussion with the patient and/or guardian regarding: the historical points, exam findings, and any diagnostic results supporting the discharge/admit diagnosis, lab results, the need for outpatient follow up, a family practitioner, to return to the emergency department if symptoms worsen or persist or if there are any questions or concerns that arise at home. 03/01 18:51 Order name: Urine Microscopic Only; Complete Time: 20:09 kb 03/01 19:02 Order name: Urine Dipstick-Ancillary; Complete Time: 19:06 [facility] 03/01 18:51 Order name: Urine Dipstick-Ancillary (obtain specimen); Complete Time: 19:05 kb 03/01 19:06 Order name: Urine --Ancillary (enter results); Complete Time: 20:09 eb 03/01 20:03 Order name: Urine Culture [facility] 03/01 18:51 Order name: Urine Test (obtain specimen); Complete Time: 19:05 kb Administered Medications: 03/01 20:22 Drug: Augmentin (Amoxicillin-Clavulanate) 875 mg Route: PO; tw5 Disposition Summary: 03/01/22 20:10 Discharge Ordered Location: Home kb Condition: Stable kb Diagnosis - UTI/ Urinary tract infection, site not specified kb Followup: kb - With: Emergency Department - When: As needed - Reason: Worsening of condition Followup: kb - With: Private Physician - When: 2 - 3 days - Reason: Recheck today's complaints, Continuance of care, Re-evaluation by your physician Discharge Instructions: - Discharge Summary Sheet kb - Urinary Tract Infection, Adult, [id number] kb Forms: - Medication Reconciliation Form kb - Thank You Letter kb - Antibiotic Education kb - Prescription Opioid Use kb Prescriptions: - Augmentin 875-125 mg Oral Tablet - take 1 tablet by ORAL route every 12 hours for 10 days; 20 tablet; Refills: 0, kb Product Selection Permitted Signatures: Dispatcher [employer] EDMS Alice Ordonez, DRYWALL HANGER HELPER-C DRYWALL HANGER HELPER-Shannan Villa, RN RN Sherly Ruiz tw5
[2022-03-01] MEDS ORDERED: AMOX/K CLAV 875 MG TAB ONE (20:30)
[2022-03-01 20:49] VITALS: BP 121/93; TEMP 98.7; O2SAT 99
== END 2022-03-01 20:30 | disposition home or self-care (01) ==
LOC: ER 18:26
DX: N39.0 Urinary tract infection, site not specified (principal); I10 Essential (primary) hypertension; Z88.5 Allergy status to narcotic agent
CPT/HCPCS: 81003; 81015; 81025; 87077; 87086; 87088; 87186; 99283